=== PATIENT | female | born 1980 | race Hispanic/Latino ===

== ENCOUNTER 2017-11-09 13:56 | Inpatient (IN) | payer OTHER ==
[~2017-11-09] VITALS: Ht 157.5 cm; Wt 93.0 kg
[2017-11-09 14:15] LABS: APPEARANCE,URINE Clear (CLEAR); BILIRUBIN,URINE Negative (NEGATIVE); COLOR,URINE Yellow (YELLOW); GLUCOSE, URINE (UA) Negative (NEGATIVE); KETONES,URINE Negative (NEGATIVE); LEUKOCYTE ESTERASE ,URINE Negative (NEGATIVE); NITRATE,URINE Negative (NEGATIVE); OCCULT BLOOD,URINE Negative (NEGATIVE); PH,URINE 6.5 (5.0-8.0); PROTEIN,URINE Negative (NEGATIVE); UROBILINOGEN,URINE 0.2 mg/dL (0.2-1.0)
[2017-11-09] MEDS ORDERED: SODIUM CHLORIDE 0.9% 1000ML 1,000 ML IV ONE (14:40)
[2017-11-09] MEDS ORDERED: ONDANSETRON HCL 4 MG/2 ML VIAL ONE (14:40)
[2017-11-09] MEDS ORDERED: MORPHINE SULFATE 4 MG/1ML SYG ONE ×2 (14:41→16:44)
[2017-11-09 14:44] LABS: BASOPHILS % (AUTO) 0.5 % (0.0-5.0); EOSINOPHILS % (AUTO) 3.8 % (0.0-8.0); LYMPHOCYTES % (AUTO) 36.2 % (21.0-51.0); MEAN CORPUSCULAR HEMOGLOBIN 29.3 pg (27.0-33.0); MEAN CORPUSCULAR HGB CONC 34.4 g/dL (32.0-36.0); MEAN CORPUSCULAR VOLUME 85.2 fL (79-99); MONOCYTES % (AUTO) 5.8 % (3.0-13.0); NEUTROPHILS % (AUTO) 53.7 % (40.0-77.0); PLATELET COUNT (AUTO) 343 K/uL (130-400); RED CELL DISTRIBUTION WIDTH 13.9 % (11.0-15.5); WHITE BLOOD COUNT (AUTO) 9.7 K/uL (4.8-10.8)
[2017-11-09 14:59] LABS: CREATININE 0.5 mg/dL (0.5-1.5); POTASSIUM 3.5 mmol/L (3.5-5.1)
[2017-11-09] MEDS ORDERED: IOPAMIDOL-370 75 ML VIAL IV ONE (15:09)
[2017-11-09 15:25] LABS: ALBUMIN 3.9 g/dL (3.5-5.0); BILIRUBIN,TOTAL 0.2 mg/dL (0.2-1.0); TOTAL PROTEIN, SERUM 8.3 g/dL (6.0-8.3)
[2017-11-09] MEDS ORDERED: HYDROMORPHONE 1 MG/1 ML AMP ONE (19:13)
[2017-11-09] MEDS ORDERED: PANTOPRAZOLE SODIUM 40 MG TABLET.DR PO SCH (19:50)
[2017-11-09 20:34] VITALS: BP 117/63
[2017-11-09] MEDS: DEXTROSE 5 % AND 0.9 % NACL 1,000 ML IV SCH (20:50)
[2017-11-09] MEDS: ONDANSETRON HCL 4 MG/2 ML VIAL IVP PRN (22:09)
[2017-11-09] MEDS: MORPHINE SULFATE 4 MG/1ML SYG IVP PRN (22:10)
[2017-11-10] VITALS (7 sets, daily range): BP systolic 103–128; BP diastolic 55–70
[2017-11-10] MEDS: ONDANSETRON HCL 4 MG/2 ML VIAL IVP PRN ×6 (01:49→23:26)
[2017-11-10] MEDS: MORPHINE SULFATE 4 MG/1ML SYG IVP PRN ×6 (01:50→23:26)
[2017-11-10 05:29] LABS: HEMATOCRIT 36.6 % (36-48); MEAN CORPUSCULAR HEMOGLOBIN 29.1 pg (27.0-33.0); MEAN CORPUSCULAR HGB CONC 33.8 g/dL (32.0-36.0); MEAN CORPUSCULAR VOLUME 86.1 fL (79-99); PLATELET COUNT (AUTO) 271 K/uL (130-400); RED BLOOD CELL COUNT(AUTO) 4.26 MIL/uL (4.00-5.50); RED CELL DISTRIBUTION WIDTH 13.8 % (11.0-15.5); WHITE BLOOD COUNT (AUTO) 6.6 K/uL (4.8-10.8)
[2017-11-10 05:56] LABS: CREATININE 0.6 mg/dL (0.5-1.5); POTASSIUM 3.5 mmol/L (3.5-5.1)
[2017-11-10] MEDS: DEXTROSE 5 % AND 0.9 % NACL 1,000 ML IV SCH ×2 (10:29→18:34)
[2017-11-11] MEDS: DEXTROSE 5 % AND 0.9 % NACL 1,000 ML IV SCH ×3 (03:01→20:46)
[2017-11-11] MEDS: MORPHINE SULFATE 4 MG/1ML SYG IVP PRN ×3 (04:23→16:46)
[2017-11-11] MEDS: ONDANSETRON HCL 4 MG/2 ML VIAL IVP PRN ×2 (04:23→09:14)
[2017-11-11 04:43] VITALS: BP 124/67
[2017-11-11 05:15] LABS: BASOPHILS % (AUTO) 0.2 % (0.0-5.0); EOSINOPHILS % (AUTO) 5.3 % (0.0-8.0); HEMATOCRIT 35.1 % (36-48); LYMPHOCYTES % (AUTO) 35.2 % (21.0-51.0); MEAN CORPUSCULAR HEMOGLOBIN 30.1 pg (27.0-33.0); MEAN CORPUSCULAR HGB CONC 35.1 g/dL (32.0-36.0); MEAN CORPUSCULAR VOLUME 85.8 fL (79-99); MONOCYTES % (AUTO) 6.3 % (3.0-13.0); NUCLEATED RED BLOOD CELLS 0.1 % (0.0-0.19); PLATELET COUNT (AUTO) 271 K/uL (130-400); RED CELL DISTRIBUTION WIDTH 13.7 % (11.0-15.5); WHITE BLOOD COUNT (AUTO) 7.1 K/uL (4.8-10.8)
[2017-11-11 05:31] LABS: CREATININE 0.6 mg/dL (0.5-1.5); POTASSIUM 3.5 mmol/L (3.5-5.1)
[2017-11-11 07:53] VITALS: BP 119/63
[2017-11-11 11:26] VITALS: BP 104/66
[2017-11-11] MEDS: METOCLOPRAMIDE 10 MG/2 ML VIAL IVP SCH ×2 (13:20→16:46)
[2017-11-11 16:31] VITALS: BP 107/68
[2017-11-11 19:56] VITALS: BP 115/65
[2017-11-12] VITALS: BP 108/71
[2017-11-12] MEDS: DEXTROSE 5 % AND 0.9 % NACL 1,000 ML IV SCH (03:30)
[2017-11-12 04:00] VITALS: BP 100/57
[2017-11-12] MEDS: METOCLOPRAMIDE 10 MG/2 ML VIAL IVP SCH (06:49)
[2017-11-12 07:30] VITALS: BP 106/59
[2017-11-12 11:00] VITALS: BP 112/67
== END 2017-11-12 13:40 | disposition home or self-care (01) | DRG 440 ==
LOC: EDH 13:56 → OBSVTOIN 13:57 → EDHIP 13:57 → 4BH 19:53
PROVIDERS: ADMIT Internal Medicine Nephrology; ATTEND Internal Medicine Nephrology
DX: K85.90 Acute pancreatitis without necrosis or infection, unspecified (principal); K76.0 Fatty (change of) liver, not elsewhere classified; E78.1 Pure hyperglyceridemia; E78.5 Hyperlipidemia, unspecified; Z90.49 Acquired absence of other specified parts of digestive tract; Z90.710 Acquired absence of both cervix and uterus
CPT/HCPCS: 36415; 74177; 76705; 80048; 80053; 80061; 81003; 83690; 84478; 85025; 85027; J1170; J2270; J2405; J2765; J7030; J7042; Q9967